=== PATIENT | female | born 1965 ===

== ENCOUNTER → 2018-08-01 21:19 | Outpatient (REF) | payer OTHER, SELFPAY ==
[2018-08-01 21:46] LABS: Add Manual Diff / Slide Review NO; Basophils Absolute Auto 100 /uL (0-100); Basophils Percent Auto 1.3 % (0-2); Eosinophils Absolute Auto 100 /uL (0-450); Eosinophils Percent Auto 1.8 % (2-4); Hematocrit 40.6 % (36-46); Hemoglobin 13.4 g/dL (12.0-16.0); Lymphocytes Absolute Auto 1600 /uL (1100-4500); Lymphocytes Percent Auto 41.6 % (25-40); Mean Corpuscular Hemoglobin 30.6 PG (26-34); Mean Corpuscular Volume 92.8 fL (80-100); Monocytes Absolute Auto 300 /uL (0-900); Monocytes Percent Auto 8.9 % (3-14); Neutrophils Absolute Auto 1800 /uL (1500-7000); Neutrophils Percent Auto 46.4 % (50-75); Platelet Count 354 X10^3/uL (150-400); Red Blood Cell Count 4.37 X10^6/uL (4.0-5.2); Red Cell Distribution Width 13.4 % (11.6-14.8); White Blood Cell Count 3.9 X10^3/uL (4.5-11.0)
[2018-08-01 22:08] LABS: Iron 97 ug/dL (37-170)
[2018-08-01 22:25] LABS: Free T4, Direct Thyroxine 0.98 ng/dL (0.78-2.19)
[2018-08-01 22:44] LABS: Ferritin 47.7 ng/mL (11.1-264)
[2018-08-03 14:31] LABS: EBV Virus IgM Ab < 36.00 U/mL (< 36.00)
== END ==
LOC: LAB 21:19
PROVIDERS: Visit Provider Naturopath
DX: R53.83 Other fatigue (principal); R79.0 Abnormal level of blood mineral
CPT/HCPCS: 36415; 82728; 83540; 84439; 84443; 84482; 85025; 86663; 86664; 86665